=== PATIENT | male | born 1950 | race Caucasian/White ===

== ENCOUNTER → 2019-07-23 12:50 | Outpatient (CLI) | payer MEDICARE, MEDICAID, SELFPAY | PROVIDERS: PCP Family Medicine; Visit Provider Internal Medicine | DX: I25.10 Atherosclerotic heart disease of native coronary artery without angina pectoris (principal); I11.9 Hypertensive heart disease without heart failure; I34.0 Nonrheumatic mitral (valve) insufficiency; E78.5 Hyperlipidemia, unspecified; Z95.0 Presence of cardiac pacemaker | CPT/HCPCS: 93306 ==

== ENCOUNTER → 2021-03-03 10:23 | Outpatient (CLI) | payer MEDICARE, MEDICAID, SELFPAY ==
--- NOTE | 2021-03-03 11:11 | CT_ITS ---
PROCEDURE: CT ANGIO CHEST CLINCIAL INDICATION: diminsed radial pulse, blood pressure difference Att rt r/o stensosis Rt b/p 160/90 Lt b/p 190/90 COMPARISON: No exams were available for comparison TECHNIQUE: IV Contrast: 70ML Isovue 370 Axial images obtained with sagittal and coronal reformats. All CT scans at the facility use one or more dose reduction, viz: automated exposure control, ma/kV adjustment per patient size (including targeted exams where dose is matched to indication, i.e. head), or iterative reconstruction technique. FINDINGS: There are diffuse atherosclerotic vascular changes with calcific plaque in the aorta, great vessels, and both carotid arteries as well as the vertebrals. There is a focal high-grade stenosis involving the proximal aspect of the right subclavian artery. The stenosis measures approximately 65 percent. No calcific plaque is evident at this focal area of stenosis. The area of stenosis is 1 cm distal to the origin of the right vertebral artery. Pt has Calcific plaque is present in the proximal right ICA with less than 25 percent stenosis. Multifocal calcific plaque is present in the right vertebral. There is a 50 percent stenotic lesion in the proximal right vertebral at the C7 level from soft plaque. On the left there is calcific plaque in the proximal left ICA and carotid bulb without significant stenosis. Multifocal calcific plaque is present in the left vertebral artery. This artery is small in nature. No occlusive change evident. Multifocal calcific plaque is present in the left subclavian artery. Small patchy area of increased density is present in the right lower lobe image 69 series 3. This area measures 1 cm nonspecific. Cardiac pacemaker device is present from left subclavian approach. Calcified granuloma is present in the right apex. 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 Other scattered areas of atherosclerotic plaque noted as detailed above. Nonspecific patchy density right lower lobe centrally. This may be post inflammatory in nature. Follow-up may confirm stability. Dictated by: Lionel Orozco MD 03/04/2021 08:34 Lionel Orozco MD in [facility] 03/04/2021 08:34
[2021-03-03 11:14] LABS: Blood Urea Nitrogen 3 mg/dl (9-20); Estimated Glomerular Filt Rate 134 ml/min (>60); GFR (African American) 162 ML/MIN (>60)
== END ==
PROVIDERS: PCP Family Medicine; Visit Provider Physician Assistant
DX: E78.2 Mixed hyperlipidemia (principal); I11.9 Hypertensive heart disease without heart failure; I25.10 Atherosclerotic heart disease of native coronary artery without angina pectoris; I34.0 Nonrheumatic mitral (valve) insufficiency; I99.8 Other disorder of circulatory system; K21.9 Gastro-esophageal reflux disease without esophagitis; R06.00 Dyspnea, unspecified; R09.89 Other specified symptoms and signs involving the circulatory and respiratory systems; Z72.0 Tobacco use; Z95.0 Presence of cardiac pacemaker
CPT/HCPCS: 36415; 71275; 82565; 84520; Q9967

== ENCOUNTER → 2021-07-21 15:09 | Outpatient (CLI) | payer MEDICARE, MEDICAID, SELFPAY | PROVIDERS: PCP Family Medicine; Visit Provider Nurse Practitioner Family | DX: I25.10 Atherosclerotic heart disease of native coronary artery without angina pectoris (principal) | CPT/HCPCS: 93306 ==

== ENCOUNTER → 2022-07-25 11:45 | Outpatient (CLI) | payer MEDICARE, MEDICAID, SELFPAY ==
--- NOTE | 2022-07-25 11:50 | NM_ITS ---
APPROVED REPORT Exam: Nuclear Stress Test Indication: CAD, HTN, HYPERLIPIDEMIA, TOB USE, FM HX, SOB Patient Location: Outpatient Stress Tech: Mara Villegas [place] Tech:VAMSHI Wang RT (R)(N)(M) Ht: 5 ft 8 in Wt: 145 lbs HR: 75 bpm BP: 199/86 mmHg BSA: 1.78 m2 TID: 0.77 BMI: 22.0 History: CAD, HTN, HYPERLIPIDEMIA, TOB USE, FM HX, SOB Procedure: Patient received a 0.4 mg of intravenous Lexiscan, resting heart rate 75 bpm, resting blood pressure 199/86 mmHg, with Lexiscan maximum heart rate achived was 102 bpm which is Less than 85 % of the maximum predicted heart rate and blood pressure was 201/84 mmHg. With Lexiscan, patient denied any complaint of chest pain. Electrocardiogram Resting electrocardiogram shows sinus rhythm nonspecific ST-T changes, with Lexiscan there is less than 1.[address] segment depression noted from the baseline EKG. The EKG portion of the Lexiscan is nondiagnostic. Cardiac Stress and Resting SPECT Images: Cardiac Stress and Resting SPECT images were obtained using technetium 99m Myoview 32.8 mCi stress and 10.68 mCi at rest. Gated SPECT for analysis of segmental wall motion and calculation of the ejection fraction also done. Prone images were also obtained. Cardiac stress and resting SPECT images show uniform myocardial activity without segmental perfusion abnormality, computer derived ejection fraction is over 65% with no regional wall motion abnormality, right ventricle is normal size and contractility. Conclusion: 1. The EKG portion of the Lexiscan is nondiagnostic. 2. No scintigraphic evidence of reversible ischemia seen, computer derived ejection fraction is over 65% with no regional wall motion abnormality, right ventricle is normal size and contractility. 3. Normal Lexiscan Myoview study. Electronically signed by : Renny Burns MD 07/25/2022 21:07:26
--- NOTE | 2022-07-25 12:37 | CA_ITS ---
APPROVED REPORT EXAM: Comprehensive 2D, Doppler, and color-flow Echocardiogram Die Grinder: Tracey Mullins CRT Ht: 5 ft 8 in Wt: 146lbs BSA: 1.79 BP: 170/80 mmHg Indications: Chest Pain, Shortness of Breath, Hyperlipidemia, Hypertension/HDD, pacer 2D Dimensions LVOT 1.92 cm (M/F) 1.5-2.5 LA Volume 11.30 mL LA Volume Index 6.20 mL/m2 (M/F) 16-34 M-Mode Dimensions RVDd 2.26 cm (0.9-2.6) LA Diam 3.30 cm (1.9-4.0) LVDd 4.01 cm (3.5-5.7) Ao Diam 5.24 cm (2.0-3.7) LVDs 2.93 cm (3.5-5.7) IVSd 2.18 cm (0.6-1.1) PWd 0.55 cm (0.6-1.1) EF (Teich) 53.10% FS 26.90% EDV (Teich) 70.40 mL TAPSE 2.56 (<1.7) ESV (Teich) 33.00 mL LV Diastology E Decel Time 145.00 (160-240 msec) E/A Ratio 0.65 MED E' 4.40 (< 7 cm/sec) MED A' 10.10 cm/s E'/MED E' Ratio 11.52 (>14) LAT E' 5.40 (<10 cm/sec) LAT A' 12.40 cm/s E/LAT E' Ratio 9.39 (>14) Aortic Valve AO Peak GR. 6.70 mmHg Mitral Valve MV A Velocity 77.00 (40-130 cm/s) E/A Ratio 0.65 MV Decel. Time 145.00 (160-240 ms) Pulmonary Valve PV Peak Velocity 112.00 (50-150 cm/s) Tricuspid Valve TR P. Velocity 344.00 cm/s RAP Estimate 10.00 mmHg RVSP 57.40 mmHg Left Ventricle Left atrium is mildly enlarged, left ventricle is normal size, mild concentric left ventricular hypertrophy, estimated ejection fraction 55% with no regional wall motion abnormality, grade 1 diastolic dysfunction seen without tissue Doppler evidence of raise left atrial pressure. Right Ventricle Right atrium and right ventricle are normal size and contractility, pacemaker lead seen in right ventricle. Aortic Valve Aortic valve is minimally thickened and fibrosed there is no aortic stenosis or aortic insufficiency. Mitral Valve Mitral valve grossly normal, there is trace mitral regurgitation. Tricuspid Valve Tricuspid valve grossly normal, there is trace tricuspid regurgitation tricuspid regurgitation jet velocity is inadequate for calculation of the right ventricular systolic pressure Pulmonic Valve Pulmonic valve is poorly visualized. Great Vessels Aortic root is normal size. Inferior vena cava normal size with normal inspiratory collapse Pericardium No significant pericardial effusion noted. Conclusion 1. Normal left ventricular size, mild concentric left ventricular hypertrophy, estimated ejection fraction 55% with no regional wall motion abnormality grade 1 diastolic dysfunction seen without tissue Doppler evidence of raise left atrial pressure. 2. Trace mitral and tricuspid regurgitation. 3. No significant pericardial effusion noted. 4. Inferior vena cava is normal size with normal inspiratory collapse. Electronically signed by : Renny Burns MD 07/25/2022 16:58:03
--- NOTE | 2022-07-25 13:43 | HMH.ITSHM ---
Current Home Medications as stated by this patient Mayankyuki Jordan or underwriting sales representative. []OMEPRAZOLE LOSARTAN POTASSIUM CLOPIDOGREL CARVEDILOL ASA
--- NOTE | 2022-07-25 13:46 | CA_ITS ---
APPROVED REPORT Exam: Pharmacologic Technologist: Mara Gonzáles, Ht: 5 ft 8 in Wt: 146 lbs BSA: 1.79 m2 HR: 75 bpm BP: 199/86 mmHg Medical History Medications: Omeprazole,,,,, Aspirin,,,,, Carvedilol,,,,, CloPIdogrel,,,,, RoSUVASTATIN,,,,, Stress Test Details Test: LEXISCAN Reason for pharmacologic stress test: physical limitation. HR Resting HR: 75 bpm Max Heart Rate (APMHR): 149 bpm Max HR Achieved: 102 bpm Target HR (85% APMHR): 126 bpm % of APMHR: 68 Recovery HR: 82 bpm BP Resting BP: 199/86 mmHg Max BP: 201/84 mmHg Recovery BP: 196.0/77.0 mmHg ECG Resting ECG: SR Clinical Exercise duration: 04:02 min Highest Stage Achieved: Exercise capacity: 1.0 METs Stress ECG Conclusion Increase Losartan to 100mg PO daily. Continue Coreg. Symptoms: SOB w/ Lexiscan. No chest pain. Arrhythmias/Ectopy: ventricular trigeminy in recovery. ST-T Changes: <1.5mm ST segment depression. Conclusion: Electronically signed by : Renny Burns MD 07/25/2022 21:02:23
== END ==
PROVIDERS: PCP Family Medicine; Visit Provider Physician Assistant
DX: E78.2 Mixed hyperlipidemia (principal); I11.9 Hypertensive heart disease without heart failure; I25.10 Atherosclerotic heart disease of native coronary artery without angina pectoris; I77.1 Stricture of artery; K21.9 Gastro-esophageal reflux disease without esophagitis; R06.00 Dyspnea, unspecified; Z72.0 Tobacco use; Z95.0 Presence of cardiac pacemaker
CPT/HCPCS: 78452; 93017; 93306